=== PATIENT | male | born 1980 | race Hispanic/Latino ===

== ENCOUNTER 2022-11-25 14:26 | Emergency (ER) | payer OTHER ==
[~2022-11-25] VITALS: Ht 162.6 cm; Wt 81.0 kg
[~2022-11-25 14:26] MED LIST: BACTRIM DS1 TAB PO; KEFLEX500 MG PO; NO HOME MEDS; TOBRAMYCIN0.3 % OD
[2022-11-25 15:39] VITALS: BP 129/97
== END 2022-11-25 15:40 | disposition home or self-care (01) | DRG 605 ==
LOC: ED 14:26
PROC: 0HQ0XZZ Repair Scalp Skin, External Approach (ICD-10-PCS; principal; 2022-11-25)
DX: S01.01XA Laceration without foreign body of scalp, initial encounter (principal); W01.0XXA Fall on same level from slipping, tripping and stumbling without subsequent striking against object, initial encounter; Y92.89 Other specified places as the place of occurrence of the external cause; Y99.0 Civilian activity done for income or pay